=== PATIENT | female | born 1980 | race Caucasian/White ===

== ENCOUNTER 2023-05-10 13:27 | Outpatient (OUT) | payer OTHER, SELFPAY ==
--- NOTE | 2023-05-10 13:37 | ECG_ITS ---
[facility] Test Date: 2023-05-10 Pat Name: Salina Valdez Department: Room: - Gender: Female [employer]: : 1980 Requested By: ENDER BLAIR Order Number: [id number] Reading MD: SAIMA DYER Measurements Intervals [place] Rate: 93 P: 53 MI: 179 QRS: 20 QRSD: 84 T: 8 QT: 350 QTc: 436 Interpretive Statements SINUS RHYTHM Non-Specific T wave inversion in III No previous ECG available for comparison Electronically Signed On 05-13-2023 7:46:12 EDT by SAIMA DYER
--- NOTE | 2023-05-10 14:18 | PM.PRESUREVA ---
History of Present Illness History of Present Illness Chief complaint: PAT visit Narrative: Patient presents for preadmission testing. The patient reports heavy menstrual periods for the past couple of years. She denies fever, nausea, vomiting, or any other complaints. Review of Systems ROS Narrative REVIEW OF SYSTEMS: Negative except as stated in HPI, ten or more systems reviewed. Constitutional: No fever , chills, weakness ENT: No sore throat or epistaxis Cardiovascular: No edema, chest pain, palpitations, or activity intolerance Respiratory: No shortness of breath, cough, or wheezing Musculoskeletal: No joint pain or swelling Gastrointestinal: No abdominal pain, constipation, diarrhea, or vomiting Genitourinary: No dysuria or hematuria Neurological: No numbness, tingling, weakness, or headache Psychiatric: No mood changes PFSH PFSH Medical History (Updated 05/10/23 @ 14:03 by Kylah Chairez NP) Surgical History (Updated 05/10/23 @ 14:03 by Kylah Chairez NP) Family History (Updated 05/10/23 @ 14:03 by Kylah Chairez NP) Other Family history of COPD (chronic obstructive pulmonary disease) Family history of breast cancer Family history of diabetes mellitus Family history of heart disease Family history of hypertension Family history of lung cancer Social History (Updated 05/10/23 @ 13:58 by Kylah Chairez NP) Within the past year, how often did you have a drink containing alcohol: never Score interpretation: A score less than 3 is consistent with normal alcohol consumption. Smoking status: Never smoker Non-prescribed substance use: denies use Previous occupational history: School [employer] Highest level of school completed/degree received: Master's degree Meds Home Medications and Allergies Home Medications Medication Instructions Recorded Confirmed Type levothyroxine 137 mcg tablet 137 mcg PO QDAY 05/10/23 05/10/23 History (Unithroid) meloxicam 15 mg tablet 15 mg PO QDAY PRN pain 05/10/23 05/10/23 History metformin 500 mg tablet 500 mg PO QDAY 05/10/23 05/10/23 History Allergies Allergy/AdvReac Type Severity Reaction Status Date / Time fish derived Allergy Rash Verified 05/10/23 13:52 latex Allergy Rash Verified 05/10/23 13:52 shellfish derived Allergy Rash Verified 05/10/23 13:52 Sulfa (Sulfonamide Allergy Unknown Verified 05/10/23 13:52 Antibiotics) Exam Narrative Exam Narrative: Constitutional: Awake, alert, comfortable, well-appearing, nontoxic, interactive, vital signs as charted Head: Normocephalic, atraumatic Neck: Supple, normal appearance, normal range of motion, no meningeal signs, no lymphadenopathy Respiratory: No respiratory distress, breath sounds clear Cardiovascular: Regular rate and rhythm, strong and regular heart tones Abdomen: Nontender, normal bowel sounds, soft, no CVA tenderness Musculoskeletal: Normal gait, no swelling or edema Skin: No rashes or induration, no lesions, only visible skin inspected Neuro: No neurological deficits, normal sensation Psychiatric: Oriented ?3, normal affect Assessment and Plan Assessment and Plan (1) Abnormal uterine bleeding (AUB): (2) Menorrhagia: (3) Pelvic pain: Plan Endometrial ablation/Ashley scheduled with Dr. Francois 05/17/2023.
[2023-05-10 14:30] LABS: Anion Gap 10.4; BUN Creatinine Ratio 12.4; Calcium 8.8 mg/dL (8.5-10.1); Carbon Dioxide 28.5 mmol/L (21.0-32.0); Chloride 101 mmol/L (98-107); Estimated GFR (African America >60 (>=60); Estimated GFR (Non-African Ame >60 (>=60); Glucose 180 mg/dL (74-106); Potassium 3.9 mmol/L (3.5-5.1); Sodium 136 mmol/L (136-145)
== END 2023-05-10 13:28 ==
LOC: PST 13:31
PROVIDERS: Obstetrics & Gynecology; PCP Family Medicine
DX: Z01.810 Encounter for preprocedural cardiovascular examination (principal); Z01.812 Encounter for preprocedural laboratory examination; N92.0 Excessive and frequent menstruation with regular cycle; N93.9 Abnormal uterine and vaginal bleeding, unspecified; R10.2 Pelvic and perineal pain; E11.9 Type 2 diabetes mellitus without complications
CPT/HCPCS: 36415; 80048; 93005; G0463

== ENCOUNTER 2023-05-17 08:34 | Day surgery (SDC) | payer OTHER, SELFPAY ==
[2023-05-10 13:58] VITALS: BP 136/89; PULSE 101; RESP 20; TEMP 36.4; O2SAT 97; BMI 40.0
[2023-05-17] VITALS (15 sets, daily range): BP systolic 117–154; BP diastolic 70–96; PULSE 87–105; RESP 11–21; TEMP 36.2–37.3; O2SAT 91–97; BMI 39.4
[2023-05-17 08:44] LABS: Hematocrit 43.2 % (36.0-48.0); Hemoglobin 14.3 g/dL (12.0-16.0); Mean Corpuscular HGB Conc 33.1 g/dL (29.9-35.2); Mean Corpuscular Hemoglobin 30.3 pg (26.7-34.0); Mean Corpuscular Volume 91.5 fL (81.0-99.0); Mean Platelet Volume 8.8 fL (9.5-13.5); Platelet Count 367 10^3/uL (150-450); Red Blood Count 4.72 10^6/uL (4.20-5.40); Red Cell Distribution Width 12.8 % (11.0-15.0); White Blood Count 9.1 10^3/uL (4.0-11.0)
[2023-05-17 09:04] LABS: HCG Quantitative <1 mIU/mL
[2023-05-17 09:21] LABS: Glucometer 117 mg/dL (74-106)
[2023-05-17] MEDS: LACTATED RINGER'S SOLUTION 1,000 ML 50 ML IV ×2 (09:30→12:26)
--- NOTE | 2023-05-17 10:17 | PC.NURSE ---
STRAIGHT CATHED [id number] MENA CATHETER FOR 200CC CELIA COLORED URINE PRIOR TO START OF CASE
--- NOTE | 2023-05-17 11:10 | OP_ITS ---
OPERATION DATE: ??05/17/2023 PROCEDURE:? Ashley endometrial ablation with hysteroscopy. PREOPERATIVE DIAGNOSIS:? Menorrhagia. POSTOPERATIVE DIAGNOSIS:? Menorrhagia. ANESTHESIA:? General. SURGEON:? Mau Francois D.O. TAPERING MACHINE OPERATOR:? None. BLOOD LOSS:? 5 mL. URINE OUTPUT:? Yellow and clear. FINDINGS:? Both ostia seen.? No gross evidence of polyps, fibroids or malignancy. ??Slightly enlarged uterus. SPECIMEN:? None. PROCEDURE:? The patient was taken back to the OR where she was prepped and draped in the normal sterile fashion after being placed in the dorsal lithotomy position, after being placed under general anesthesia without difficulty.? A weighted speculum was placed into the vagina. The anterior lip was grasped with a single tooth tenaculum. The patient was then sounded to approximately 10 cm. The patient?s cervix was gently dilated using Hegar dilators. The hysteroscope was passed through the cervix into the uterus where both ostia were seen. No gross evidence of polyps, fibroids or malignancy. The cervical length was noted to be 5 cm. The total cavity length is 5 cm.? The Ashley ablation apparatus was set to approximately 5 cm in length. This was placed through the cervix and into the uterus. After the seal was tested, at that time the total ablation of 120 seconds was performed with the Ashley withoutdifficulty. All instruments were removed from the vagina. Excellent hemostasis noted.? Sponge and lap count correct times 2.? Patient taken to recovery in stable condition. [facility], [place]
[2023-05-17] MEDS: PROMETHAZINE HCL 25 MG TABLET PO (12:17)
--- NOTE | 2023-05-17 12:27 | PC.NURSE ---
Patient was up to the bathroom. Unable to urinate at this time. Noted some spotting while wiping melanie area.Patient returned to cot at this time. Fluids restarted and told patient to slow down on the oral intake related to nausea.
[2023-05-17] MEDS: ONDANSETRON PF 4 MG/2 ML VIAL 8 MG IV (12:58)
--- NOTE | 2023-05-17 13:04 | PC.NURSE ---
PATIENT IS STILL COMPLAINING OF NAUSEA. GAVE ZOFRAN ORDERED
--- NOTE | 2023-05-17 13:46 | PC.NURSE ---
PATIENT VOMITED AFTER ZOFRAN GGIVEN AND SHE HAS ATTEMPTED TO URINATE WITH OUT SUCCESS.
--- NOTE | 2023-05-17 14:20 | PC.NURSE ---
PATIENT REQUESTING STRAIGHT CATH SO SHE CAN GO HOME. PER DR Francois...empty bladder and patient may go home
--- NOTE | 2023-05-17 14:43 | PC.NURSE ---
STRAIGHT CATHED PATIENT REMOVED 200 CC YELLOW URINE. PATIENT TOLERATED WELL AND WANTED TO GO HOME
== END 2023-05-17 14:30 | disposition home or self-care (01) ==
PROVIDERS: PCP Family Medicine; Visit Provider Obstetrics & Gynecology
PROC: (CPT 58563; principal; 2023-05-17 10:20)
DX: N92.0 Excessive and frequent menstruation with regular cycle (principal); R10.2 Pelvic and perineal pain; N93.9 Abnormal uterine and vaginal bleeding, unspecified; Z79.890 Hormone replacement therapy; Z79.899 Other long term (current) drug therapy; Z79.84 Long term (current) use of oral hypoglycemic drugs
CPT/HCPCS: 58563; 36415; 36416; 82948; 84702; 85027; J1170; J2704

== ENCOUNTER 2024-11-23 18:40 | Outpatient (REF) | payer OTHER, SELFPAY ==
[2024-11-27 14:07] LABS: Age Gdln ACOG Testing Note (.); HPV Aptima Negative (Negative); IGP, Aptima HPV, rfx 16/18,45 Note (.)
== END 2024-11-23 18:41 | disposition home or self-care (01) ==
LOC: LAB 18:40
PROVIDERS: PCP Family Medicine; Visit Provider Physician Assistant
DX: Z01.419 Encounter for gynecological examination (general) (routine) without abnormal findings (principal)
CPT/HCPCS: 87624; 88175